=== PATIENT | male | born 1955 | race Caucasian/White ===

== ENCOUNTER 2019-06-12 12:13 | Emergency (ER) | payer MEDICAID, OTHER ==
[~2019-06-12] VITALS: Ht 170.2 cm; Wt 65.0 kg
[~2019-06-12 12:13] MED LIST: ASPI-1393 PO; ATEN-42 PO; GABA100C; HYDR1POW18; INSU100I28 SQ; LIP40 PO; LISI10TA5 PO; METF500T3; PIOG15TA6 PO; SIMV5TAB2
[2019-06-12] MEDS ORDERED: ENALAPRIL 2.5MG/2ML VIAL 2ML IV ONE (13:45)
[2019-06-12 14:15] LABS: EOSINOPHILS % 2.1 % (0.0-5.0); HEMATOCRIT. 26.8 % (42.0-52.0); HEMOGLOBIN. 9.3 g/dL (14.0-18.0); LYMPHOCYTES % 14.5 % (20.0-50.0); MEAN CORPUSCULAR HEMOGLOBIN 31.5 pg (28.0-32.0); MEAN CORPUSCULAR VOLUME 90.8 fL (80.0-94.0); MEAN PLATELET VOLUME 9.3 fl (7.4-10.4); NEUTROPHILS % 75.4 % (40.0-76.0); PLATELET 227 x1000/uL (130-400); RED BLOOD CELL COUNT 2.96 mill/uL (4.7-6.1); RED CELL DISTRIBUTION WIDTH 14.2 % (11.6-14.6)
[2019-06-12 14:22] LABS: CHLORIDE 101 mEq/L (98-107)
[2019-06-12 14:24] LABS: INR 0.9; PARTIAL THROMBOPLASTIN TIME 25.7 sec (23.4-31.0); PROTHROMBIN TIME 9.8 sec (9.6-11.0)
[2019-06-12] MEDS ORDERED: SODIUM CHLORIDE 0.9% 500 ML IV ONE (15:00)
[2019-06-12] MEDS ORDERED: INSULIN REGULAR (HUMULIN R) 300UNITS/3ML SUBCUT ONE (15:00)
[2019-06-12] MEDS ORDERED: TETANUS, DIPHTHERIA, PERTUSSIS VAC/PF 0.5ML (>7YR OLD) IM ONE (16:00)
[2019-06-12] MEDS ORDERED: BACITRACIN ZINC OINT UDPKT TOP ONE (16:00)
[2019-06-12 16:20] VITALS: BP 159/60
== END 2019-06-12 16:41 | disposition home or self-care (01) ==
LOC: ER 12:52
DX: S01.112A Laceration without foreign body of left eyelid and periocular area, initial encounter (principal); E11.65 Type 2 diabetes mellitus with hyperglycemia; E78.00 Pure hypercholesterolemia, unspecified; D64.9 Anemia, unspecified; I10 Essential (primary) hypertension; I69.351 Hemiplegia and hemiparesis following cerebral infarction affecting right dominant side; Z79.4 Long term (current) use of insulin; W01.0XXA Fall on same level from slipping, tripping and stumbling without subsequent striking against object, initial encounter; Y93.89 Activity, other specified; Y92.018 Other place in single-family (private) house as the place of occurrence of the external cause
CPT/HCPCS: 36415; 70450; 70486; 71045; 72125; 80048; 82962; 84484; 85025; 85610; 85730; 90471; 90715; 93005; 96361; 96372; 96374; 99284; J1815; J3490

== ENCOUNTER 2019-07-26 09:58 | Emergency (ER) | payer OTHER ==
[~2019-07-26] VITALS: Ht 167.6 cm; Wt 77.0 kg
[2019-07-26 11:11] VITALS: BP 133/67
[2019-07-26] MEDS ORDERED: TETANUS, DIPHTHERIA, PERTUSSIS VAC/PF 0.5ML (>7YR OLD) IM ONE (13:45)
== END 2019-07-26 14:10 | disposition home or self-care (01) ==
LOC: ER 09:58
DX: Z23 Encounter for immunization (principal); I10 Essential (primary) hypertension; E11.9 Type 2 diabetes mellitus without complications; Z86.73 Personal history of transient ischemic attack (TIA), and cerebral infarction without residual deficits; Z79.84 Long term (current) use of oral hypoglycemic drugs; Z79.82 Long term (current) use of aspirin
CPT/HCPCS: 99281

== ENCOUNTER 2019-09-13 12:18 | Emergency (ER) | payer OTHER ==
[~2019-09-13] VITALS: Ht 170.2 cm; Wt 59.0 kg
[2019-09-13 13:53] VITALS: BP 123/74
== END 2019-09-13 13:54 | disposition home or self-care (01) ==
LOC: ER 13:04
DX: Z48.02 Encounter for removal of sutures (principal)
CPT/HCPCS: 99281

== ENCOUNTER 2019-11-24 20:24 | Emergency (ER) | payer OTHER ==
[~2019-11-24] VITALS: Ht 175.3 cm; Wt 54.4 kg
[~2019-11-24 20:24] MED LIST changes: -ASPI-1393 PO; +ASPI-1497 PO
[2019-11-25 01:23] LABS: CHLORIDE 97 mEq/L (98-107)
[2019-11-25 01:24] LABS: BASOPHILS % 0.6 % (0.0-2.0); EOSINOPHILS % 0.4 % (0.0-5.0); HEMATOCRIT. 38.5 % (42.0-52.0); HEMOGLOBIN. 12.6 g/dL (14.0-18.0); LYMPHOCYTES % 17.7 % (20.0-50.0); MEAN CORPUSCULAR HEMOGLOBIN 31.1 pg (28.0-32.0); MEAN CORPUSCULAR VOLUME 94.6 fL (80.0-94.0); MEAN PLATELET VOLUME 9.7 fl (7.4-10.4); MONOCYTES % 11.4 % (2.0-8.0); NEUTROPHILS % 69.9 % (40.0-76.0); PLATELET 252 x1000/uL (130-400); RED BLOOD CELL COUNT 4.07 mill/uL (4.7-6.1); RED CELL DISTRIBUTION WIDTH 14.7 % (11.6-14.6)
[2019-11-25 04:00] VITALS: BP 157/92
== END 2019-11-25 08:02 | disposition home or self-care (01) ==
LOC: ER 20:24
DX: R42 Dizziness and giddiness (principal); E11.9 Type 2 diabetes mellitus without complications; I10 Essential (primary) hypertension; F32.9 Major depressive disorder, single episode, unspecified; Z86.73 Personal history of transient ischemic attack (TIA), and cerebral infarction without residual deficits
CPT/HCPCS: 36415; 71045; 80053; 82962; 83880; 84484; 85025; 93005; 99284; Z7610